=== PATIENT | female | born 1975 | race American Indian/Alaskan Native ===

== ENCOUNTER 2024-03-08 09:23 | Day surgery (SDC) | payer MEDICAID ==
[2024-03-08] MEDS ORDERED: Propofol 200 MG/20 ML SDV ONE ×3 (10:10→11:27)
[2024-03-08] MEDS: Lactated Ringers 1,000 ML IV SCH (11:00)
[2024-03-08] MEDS ORDERED: Lidocaine 1% 2 ML ONE (11:09)
[2024-03-08] MEDS ORDERED: EPINEPHrine 1 MG/ML SDV ONE (11:13)
[2024-03-08] MEDS ORDERED: Bupivacaine 0.5% 30 ML SDV ONE (11:13)
== END 2024-03-08 12:29 | disposition home or self-care (01) ==
LOC: JD.SDS 09:23
PROVIDERS: ATTEND Surgery
DX: K92.2 Gastrointestinal hemorrhage, unspecified (principal); K44.9 Diaphragmatic hernia without obstruction or gangrene; D64.9 Anemia, unspecified; K70.30 Alcoholic cirrhosis of liver without ascites
CPT/HCPCS: 43235; 45378; J0171; J0665; J2704; J7120; J3490